=== PATIENT | female | born 1995 | race Caucasian/White ===

== ENCOUNTER → 2017-11-02 | Outpatient (CLI) | payer OTHER ==
[~2017-11-02] MED LIST: ALBU1AER9 INH; BECL1AER5 NAE; CETI10TA10 PO; ETHY1TAB6 PO; MULTTAB58 PO; SNG10 PO; ZNT/150 PO
--- NOTE | 2017-11-02 11:02 | DIAGNOSTIC IMAGING REPORT ---
MRI OF THE RIGHT KNEE CLINICAL HISTORY: Right knee pain. COMPARISON STUDY: No priors. TECHNIQUE: MRI of the right knee was performed utilizing proton density, T1, and T2-weighted sequences in the axial, sagittal, coronal planes. IV contrast was not administered for this examination. Note that interpretation is suboptimal without plain film correlate. The examination is degraded by large body habitus. FINDINGS: Menisci: There is increased signal within the posterior horn of the medial meniscus. This does not clearly extend to the articular surface, and could represent an intrasubstance tear versus mucoid degeneration (sagittal image #18, coronal image #13). The lateral meniscus is intact. Ligaments: The anterior and posterior cruciate ligaments are intact. The medial and lateral collateral ligaments are within normal limits. Extensor mechanism: The extensor mechanism is intact. Hoffa's fat pad is normal in appearance. Articular cartilage and bone: The articular cartilage is intact and well maintained all 3 compartments. Normal marrow signal is preserved of the visualized bony structures. There are small marginal osteophytes. Joint effusion: None Soft tissues: The musculature surrounding the knee joint is normal in bulk and signal intensity. IMPRESSION: 1. There is increased signal within the posterior horn of the medial meniscus that does not clearly extend to the articular surface. This could represent intrasubstance tearing versus mucoid degeneration. 2. The collateral alignment, the cruciate ligaments, and the lateral meniscus are maintained. 3. The articular cartilage is preserved in all 3 compartments. No marrow edema is identified. Electronically signed by: Greg Albarran M.D. 11/02/2017 11:00 AM Dictated Date/Time: 11/02/2017 10:54 AM
== END | disposition home or self-care (01) ==
LOC: C.MRI 09:36
PROVIDERS: ATTEND Orthopaedic Surgery Sports Medicine
DX: M23.91 Unspecified internal derangement of right knee (principal)